=== PATIENT | male | born 1960 | race Caucasian/White ===

== ENCOUNTER 2017-10-22 16:31 | Emergency (ER) | payer OTHER ==
[2017-10-22 16:48] VITALS: BP 118/74; PULSE 92; TEMP 98.5; BMI 25.7
--- NOTE | 2017-10-22 16:57 | PDOC ---
Attending Attestation - Resident Resident Name: ChinmayHeidi - ED Attending Attestation I have performed the following: I have examined & evaluated the patient, The case was reviewed & discussed with the resident, I agree w/resident's findings & plan, Exceptions are as noted - HPI HPI: 10/22/17 18:01 Rash and fever for 2 days. Rash is generalized over the trunk and extremities, nonpruritic. Fever to 101.7 at home. Just finished a course of Bactrim for what was described as an infected tattoo. Prior to that, completed a course of amoxicillin subsequent to dental work. Denies any definite symptoms that would suggest infection including URI symptoms, sore throat, cough, chest pain, shortness of breath, abdominal pain, nausea, vomiting, diarrhea, visual or focal neurologic symptoms, unsteadiness of gait, urinary tract symptoms including dysuria frequency urgency hesitancy or hematuria 10/22/17 18:04 - Physicial Exam PE: 10/22/17 18:02 PE reveals that the patient is afebrile now and remainder of vital signs are normal PERRLA, fundi benign, conjunctivae, ENT clear Neck supple without bruit mass or nodes Chest clear with full breath sounds bilaterally and no wheezes rales or rhonchi CV regular without murmur rub or gallop pulses full and symmetric no JVD or edema no bruits Abdomen nondistended, bowel sounds active, soft without mass tenderness organomegaly. Neurological intact Skin with the diffuse maculopapular rash of the trunk and extremities. There is no sign of definite skin infection in the area of the tattoo, nor in other areas. - Medical Decision Making 10/22/17 18:05 Assessment: Rash and fever are most likely a drug reaction to the Bactrim. Although he has no mucous membrane signs or symptoms that would suggest a full blown [place] picture. He has no other symptoms or physical findings suggestive of infection in other areas of the body. Although with the recent dental procedure endocarditis must be considered Plan: Fever workup, symptomatic control, and further medical evaluation treatment depending on results. The patient has completed a course of Bactrim as of yesterday some of this since the inciting agent his condition should improve soon.
[2017-10-22 18:21] LABS: PH,URINE 5.5 (4.5-8); URINE APPEARANCE Clear; URINE BILIRUBIN Negative (NEGATIVE); URINE COLOR Yellow; URINE GLUCOSE (UA) Negative (NEGATIVE); URINE KETONE Trace (NEGATIVE); URINE LEUK ESTERASE Negative (NEGATIVE); URINE NITRITE Negative (NEGATIVE); URINE UROBILINOGEN 0.2 (0.2-1.0)
[2017-10-22 18:23] LABS: HEMATOCRIT 44.2 % (35.4-49); HEMOGLOBIN 14.4 GM/dl (11.7-16.9); MCH 30.1 pg (25.7-33.7); MCHC 32.6 g/dl (32.0-35.9); MEAN CELL VOLUME 92.4 fl (80-96); MEAN PLT VOLUME 9.8 fl (7.5-11.1); PLATELET COUNT 109 K/MM3 (134-434); RBC 4.78 M/mm3 (4.00-5.60); RDW 12.9 % (11.9-15.9); URINE PROTEIN 1+ (NEGATIVE); WHITE BLOOD COUNT 4.4 K/mm3 (4.0-10.8)
[2017-10-22 18:38] LABS: ALK PHOS 58 U/L (32-92); ANION GAP 7 MMOL/L (8-16); BILIRUBIN,TOTAL 0.8 mg/dl (0.2-1.0); BLOOD UREA NITROGEN 17 mg/dl (7-18); CALCIUM 8.4 mg/dl (8.4-10.2); CHLORIDE 104 mmol/L (98-107); CO2 23 mmol/L (22-28); CREATININE 1.6 mg/dl (0.6-1.3); GLUCOSE,RANDOM 108 mg/dl (74-106); POTASSIUM 3.8 mmol/L (3.5-5.1); SGOT/AST 32 U/L (10-42); SGPT/ALT 27 U/L (10-40); SODIUM 134 mmol/L (136-145); TOT PROT 6.7 g/dl (6.4-8.3); URIC ACID CRYSTALS FEW /hpf (NONE SEEN); URINE BACTERIA FEW /hpf (NEGATIVE); URINE RBC 0-2 /hpf (0-3)
--- NOTE | 2017-10-22 18:47 | PDOC ---
History of Present Illness - General Chief Complaint: SIRS, Suspected/Possible Stated Complaint: RASH/FEVER - History of Present Illness Initial Comments: Abhijit Olsen is a 56yo man with no significant medical history who presents with rash and fever today. He reports that he has been having some medical problems for the past two weeks. Initially, he had dental work 2 weeks ago and was prescribed a 7 day course of amoxicillin, which he completed without issues. Last week, he was seen for evaluation of skin infection around a new tatoo. He was prescribed bactrim, which he has been taking for hte past week. He reports that he has been feeling somewhat off for the past few days, with loss of appetite for several days and insomnia for two nights. He additionally reports shivering, sweating chills overnight yesterday. Mr Olsen reports that he is often sweaty at night, but this was much worse than usual. He did not feel well today at work, so he checked his temperature and it was 101.5. He took 1200mg of ibuprofen, an ambian, and nyquil at home this morning to get some sleep. This afternoon, his significant other noticed that he had a red rash over his entire body. They are not sure when it started as neither of them noticed prior to today. Mr Olsen denies that the rash itches or hurts. He has not had any new lotiions, soaps, or detergents, but he does not believe that he has ever had bactrim in the past. Prior to today, he does not believe that he has had a fever. He denies any associated symptoms including headache, congestion, sore throat, cough, nausea/ vomiting, or diarrhea. He does endorse some short, sharp, stabbing pains deep under the site of his skin infection, though these self-resolve after seconds and he assumed they were due to boxing recently. He has an occasional cough associated with smoking marijuana, but this is not new or changed. He has no other symtpoms. 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) COPD: No GI Disorders: Yes (DIVERTICULOSIS) Disorders: Yes (KIDNEY STONES) Psychiatric Problems: Yes (DEPRESSION ANXIETY) - Suicide/Smoking/Psychosocial Hx Smoking History: Former smoker Have you smoked in the past 12 months: Yes Number of Cigarettes Smoked Daily: 40 Information on smoking cessation initiated: No 'Breaking Loose' booklet given: 12/30/13 Hx Alcohol Use: Yes Substance Use Type: Alcohol, Marijuana, Opiates Review of Systems - Review of Systems Comments:: General: No fevers, no chills, no weight or appetite change, no malaise HEENT: No changes in vision, no changes in hearing, no congestion, no sore throat CV: No chest pain, no palpitations, no LE edema Pulm: No SOB, no cough, no wheezing GI: No nausea or vomiting, no change in bowel habits, no melena : No frequency, no urgency, no dysuria Musc: No back pain, no joint swelling, no recent injury Skin: See HPI Endo: No excessive thirst, no heat/cold intolerance Heme: No unusual bruising or bleeding, no swollen glands Neuro: No syncope, no numbness/tingling, no focal weakness Vasc: No claudication Psych: No recent change in mood, no SI or HI *Physical Exam - Vital Signs Last Vital Signs Temp Pulse Resp BP Pulse Ox 98.5 F 92 H 18 118/74 99 10/22/17 16:44 10/22/17 16:44 10/22/17 16:44 10/22/17 16:44 10/22/17 16:44 - Physical Exam Comments: General: Comfortable, no acute distress HEENT: PERRL, EOMI, MMM, voice normal, normal neck ROM, no LAD Cards: RRR, no murmur appreciated Pulm: Comfortable on room air, clear to auscultation bilaterally Abd: Soft, nontender, nondistended : No CVA tenderness Ext: Atraumatic. No LE edema. ROM intact. Strength 5/5 and equal bilaterally Skin: Diffuse red, maculopapular rash. Excoriations on BLE and LUE. No swelling , no skin sloughing, nontender, no drainage, no wounds. Vasc: Extremities WWP. Palpable radial and pedal pulses bilaterally Neuro: A&Ox3, CN grossly intact, normal speech, motor/sensory grossly intact and symmetric Psych: Mood appropriate to situation ED Treatment Course - LABORATORY CBC & Chemistry Diagram: 10/22/17 17:57 10/22/17 17:57 - ADDITIONAL ORDERS Additional order review: Laboratory Results 10/22/17 10/22/17 17:57 17:57 Sodium 134 L Potassium 3.8 Chloride 104 Carbon Dioxide 23 Anion Gap 7 L BUN 17 Creatinine 1.6 H Creat Clearance w eGFR 45.27 Random Glucose 108 H D Calcium 8.4 Total Bilirubin 0.8 AST 32 D ALT 27 D Alkaline Phosphatase 58 Total Protein 6.7 Albumin 4.0 Urine Color Yellow Urine Appearance Clear Urine pH 5.5 Ur Specific [place] 1.025 Urine Protein 1+ H Urine Glucose (UA) Negative Urine Ketones Trace Urine Blood Negative Urine Nitrite Negative Urine Bilirubin Negative Urine Urobilinogen 0.2 Ur Leukocyte Esterase Negative Urine RBC 0-2 Urine WBC 2-4 Uric Acid Crystals Few Urine Bacteria Few 10/22/17 17:57 RBC 4.78 MCV 92.4 MCHC 32.6 RDW 12.9 MPV 9.8 D Neutrophils % No Result Required. Lymphocytes % No Result Required. - RADIOLOGY Radiology Studies Ordered: Category Date Time Status CHEST X-RAY PORTABLE* [RAD] Stat Radiology 10/22/17 17:55 Ordered Medical Decision Making - Medical Decision Making Abhijit Olsen is an otherwise healthy 56yo man who presents today with full- body, nontender, non-pruritic erythematous rash and fever at home. - Rash appearance is most consistent with drug reaction as he recently started Bactrim for a skin infection - No fever in ED. However, Mr Olsen reports having taken 1200mg ibuprofen at home. Will work up for fever. No symptoms currently that suggest specific illness. CBC, BMP, UA, EKG, CXR ordered - No IVF at this time as Mr Olsen does not appear septic. May reconsider depending on results of labs - May need admission depending on results 10/22/17 19:21 - Labs unremarkable aside from mildly elevated Cr to 1.6. Previous labs from 4 years ago; likely secondary to mild dehydration from recent poor appetite - No sign of infection at this time based on labs, CXR, UA. CXR unconcerning - Discussed with patient. Appears to be reaction to Bactrim. Will give decadron and zantac. Plan to discharge. - Mr Olsen agrees with this plan. Discussed return precautions. He understands and agrees. Discussed with Dr Rodriguez. *DC/Admit/Observation/Transfer Diagnosis at time of Disposition: Drug exanthem - Discharge Dispostion Disposition: HOME Condition at time of disposition: Good Decision to Admit order: No - Referrals - Patient Instructions Printed Discharge Instructions: DI for Adverse Drug Reaction -- Allergic Additional Instructions: Discharge Instructions: - You were seen in the ED for fever and rash. These appear to be caused by a recent sulfa antibiotic, Bactrim, that you were taking at home. - You received a steroid medication and histamine josh to help with your symptoms - You should follow up with your primary physician in the next 2-3 days for re- evaluation - Seek medical care if you have continued fevers, worsening of your rash including swelling, peeling, drainage, or open wounds. You will also need to be seen if you are unable to eat and drink normally at home. - Come to the ED for immediate evaluation if you have any swelling in your throat, difficulty swallowing, or changes to your voice. - Post Discharge Activity
[2017-10-22] MEDS ORDERED: DEXAMETHASONE 4 MG TABLET (FP) PO ONE (19:11)
[2017-10-22] MEDS ORDERED: RANITIDINE HCL 150 MG TABLET (FP) PO ONE (19:11)
[2017-10-22] MEDS ORDERED: RANITIDINE HCL 150 MG TABLET (FP) ONE (19:17)
[2017-10-22] MEDS ORDERED: DEXAMETHASONE 4 MG TABLET (FP) ONE (19:17)
[2017-10-22 21:27] LABS: PLATELET ESTIMATE ADEQUATE
--- NOTE | 2017-10-23 09:48 | EKG ---
Test Reason : Blood Pressure : / mmHG Vent. Rate : 082 BPM Atrial Rate : 082 BPM P-R Int : 154 ms QRS Dur : 094 ms QT Int : 366 ms P-R-T Axes : 025 -04 037 degrees QTc Int : 427 ms NORMAL SINUS RHYTHM LOW VOLTAGE QRS BORDERLINE ECG WHEN COMPARED WITH ECG OF 21-AUG-2001 16:05, QUESTIONABLE CHANGE IN QRS AXIS NONSPECIFIC T WAVE ABNORMALITY NOW EVIDENT IN ANTERIOR LEADS Confirmed by Bernardo Foley MD ([id number]) on 10/23/2017 9:48:17 AM Referred By: Confirmed By:Bernardo Foley MD
== END 2017-10-22 19:29 | disposition home or self-care (01) ==
LOC: FER 16:31
DX: L27.0 Generalized skin eruption due to drugs and medicaments taken internally (principal); Z87.891 Personal history of nicotine dependence; F41.8 Other specified anxiety disorders; Z86.73 Personal history of transient ischemic attack (TIA), and cerebral infarction without residual deficits
CPT/HCPCS: 36415; 71045-TC-FY; 80053; 81003; 81015; 83605; 84484; 85025; 87086; 93005; 99283-25

== ENCOUNTER 2020-03-31 02:38 | Emergency (ER) | payer OTHER ==
[2020-03-31] MEDS ORDERED: KETOROLAC TROMETHAMINE 15 MG/ML VIAL IVPUSH ONE (02:43)
[2020-03-31 02:51] VITALS: PULSE 93; TEMP 97.7; BMI 30.1
[2020-03-31] MEDS ORDERED: ACETAMINOPHEN 325 MG TABLET (FP) PO ONE (02:53)
[2020-03-31] MEDS ORDERED: ACETAMINOPHEN 325 MG TABLET (FP) ONE (02:54)
[2020-03-31] MEDS ORDERED: SODIUM CHLORIDE 1,000 ML IV STA ×2 (02:57→03:22)
[2020-03-31] MEDS ORDERED: morphine SULFATE 4 MG/ML VIAL IVPB ONE (03:18)
[2020-03-31] MEDS ORDERED: morphine SULFATE 4 MG/ML VIAL ONE (03:19)
[2020-03-31 03:24] LABS: BASO % 1.1 % (0-2.0); EOS % 2.5 % (0-4.5); HEMOGLOBIN 14.8 GM/dL (11.7-16.9); LYMPH % 34.4 % (8-40); MCHC 33.7 g/dl (32.0-35.9); MEAN CELL VOLUME 92.1 fl (80-96); MONO % 9.2 % (3.8-10.2); NEUT % 52.8 % (42.8-82.8); PLATELET COUNT 196 K/MM3 (134-434); RBC 4.77 M/mm3 (4.00-5.60); WHITE BLOOD COUNT 10.5 K/mm3 (4.0-10.0)
[2020-03-31 03:27] LABS: EPI CELLS 1 /uL (0-25.1); HYALINE CASTS 1 /uL (0-3.1); URINE APPEARANCE CLEAR; URINE BACTERIA 10 /uL (0-1359); URINE BILIRUBIN NEGATIVE (NEGATIVE); URINE COLOR YELLOW; URINE GLUCOSE (UA) NEGATIVE (NEGATIVE); URINE KETONE NEGATIVE (NEGATIVE); URINE LEUK ESTERASE NEGATIVE (NEGATIVE); URINE NITRITE NEGATIVE (NEGATIVE); URINE PROTEIN NEGATIVE (NEGATIVE); URINE RBC 4 /uL (0-23.9); URINE UROBILINOGEN 0.2 mg/dL (0.2-1.0); URINE WBC 3 /uL (0-25.8)
[2020-03-31 03:43] LABS: POTASSIUM 4.1 mmol/L (3.5-5.1)
[2020-03-31 03:45] LABS: ALBUMIN 3.8 g/dl (3.4-5.0); BLOOD UREA NITROGEN 20.7 mg/dL (7-18)
[2020-03-31 03:48] LABS: CREATININE 1.2 mg/dL (0.55-1.3)
[2020-03-31 03:51] LABS: BILIRUBIN,TOTAL 0.3 mg/dL (0.2-1); TOT PROT 7.3 g/dl (6.4-8.2)
[2020-03-31 04:16] VITALS: BP 178/112
== END 2020-03-31 04:25 | disposition home or self-care (01) ==
LOC: FER 02:38
PROC: 3E0333Z Introduction of Anti-inflammatory into Peripheral Vein, Percutaneous Approach (ICD-10-PCS; principal; 2020-03-31)
PROC: 3E033NZ Introduction of Analgesics, Hypnotics, Sedatives into Peripheral Vein, Percutaneous Approach (ICD-10-PCS; 2020-03-31)
PROC: 3E0337Z Introduction of Electrolytic and Water Balance Substance into Peripheral Vein, Percutaneous Approach (ICD-10-PCS; 2020-03-31)
PROC: 3E0337Z Introduction of Electrolytic and Water Balance Substance into Peripheral Vein, Percutaneous Approach (ICD-10-PCS; 2020-03-31)
DX: N20.0 Calculus of kidney (principal)
CPT/HCPCS: 36415; 74176-TC; 80053; 81003; 85025; 87086; 99284-25

== ENCOUNTER 2022-02-28 10:44 | Emergency (ER) | payer BC, OTHER ==
[2022-02-28 10:50] VITALS: TEMP 98.1; BMI 31.5
[2022-02-28] MEDS ORDERED: LACTATED RINGERS SOLUTION 1000 ML INFUS.BAG IV ONE (10:56)
[2022-02-28] MEDS ORDERED: ACETAMINOPHEN 1000 MG/100 ML BAG IVPB ONE (10:56)
[2022-02-28] MEDS ORDERED: ACETAMINOPHEN INJECTION 100 ML IVPB ONE (11:15)
[2022-02-28 11:24] LABS: HEMATOCRIT 46.2 % (35.4-49); MCH 31.9 pg (25.7-33.7); MCHC 34.6 g/dl (32.0-35.9); MEAN CELL VOLUME 92.2 fl (80-96); MEAN PLT VOLUME 8.7 fl (7.5-11.1); PLATELET COUNT 183.7 10^3/uL (134-434); RBC 5.01 10^6/uL (4.00-5.60); RDW 13.4 % (11.9-15.9)
[2022-02-28 11:34] LABS: INR 1.2 (0.83-1.09); PROTHROMBIN TIME (PATIENT) 13.8 SEC (9.7-13.0)
[2022-02-28 11:55] LABS: ALBUMIN 3.5 g/dl (3.4-5.0); BILIRUBIN,TOTAL 0.9 mg/dl (0.2-1); CALCIUM 8.6 mg/dl (8.5-10); MAGNESIUM 1.8 mg/dL (1.8-2.4); TOT PROT 6.8 g/dl (6.4-8.2)
[2022-02-28] MEDS ORDERED: POTASSIUM CHLORIDE TABS 20 MEQ TABLET.ER (FP) PO ONE ×2 (12:20→12:25)
[2022-02-28 12:33] LABS: PH,URINE 5.5 (4.5-8); URINE APPEARANCE HAZY; URINE BILIRUBIN 1+ (NEGATIVE); URINE COLOR YELLOW; URINE GLUCOSE (UA) NEGATIVE (NEGATIVE); URINE KETONE NEGATIVE (NEGATIVE); URINE PROTEIN 1+ (NEGATIVE)
[2022-02-28 12:34] LABS: URINE LEUK ESTERASE NEGATIVE (NEGATIVE); URINE NITRITE NEGATIVE (NEGATIVE); URINE UROBILINOGEN 0.2 (0.2-1.0)
[2022-02-28 12:36] LABS: EPI CELLS RARE /HPF; URINE BACTERIA RARE /hpf (NEGATIVE); URINE WBC 0-2 (NEGATIVE)
[2022-02-28] MEDS ORDERED: AMOX TR/POT CLAV 875MG/125MG TABLETS (FP) PO ONE (13:55)
[2022-02-28 14:12] VITALS: BP 138/97; PULSE 78; RESP 18
[2022-02-28 16:22] LABS: PLATELET ESTIMATE ADEQUATE
== END 2022-02-28 14:15 | disposition home or self-care (01) ==
LOC: FER 10:44
PROC: 3E0333Z Introduction of Anti-inflammatory into Peripheral Vein, Percutaneous Approach (ICD-10-PCS; principal; 2022-02-28)
DX: K52.9 Noninfective gastroenteritis and colitis, unspecified (principal)
CPT/HCPCS: 0241U-QW; 36415; 74177-TC; 80053; 81003; 83690; 83735; 85025; 85610; 85730; 86850; 86900; 86901; 87086; 99285-25; Q9967

== ENCOUNTER 2022-09-02 17:56 | Emergency (ER) | payer BC ==
[2022-09-02 18:10] VITALS: BP 153/95; PULSE 100; RESP 18; TEMP 98.2; BMI 31.5
[2022-09-02 19:21] LABS: EPITHELIAL CELLS FEW /hpf; URINE MUCUS 2+
[2022-09-02 19:28] LABS: HEMOGLOBIN 16.3 G/dL (11.7-16.9); MCH 31.8 pg (25.7-33.7); MCHC 33.9 g/dl (32.0-35.9); MEAN CELL VOLUME 93.9 fl (80-96); MEAN PLT VOLUME 9.7 fl (7.5-11.1); PLATELET COUNT 183.1 10^3/uL (134-434); RBC 5.11 10^6/uL (4.00-5.60); WHITE BLOOD COUNT 14.1 10^3/uL (4.0-10.8)
[2022-09-02 19:45] LABS: ALBUMIN 4.3 g/dl (3.4-5.0); BILIRUBIN,TOTAL 0.5 mg/dl (0.2-1); BLOOD UREA NITROGEN 13.3 mg/dl (7-18); CALCIUM 9.3 mg/dl (8.5-10.1); CREATININE 0.9 mg/dl (0.6-1.3); POTASSIUM 3.9 mmol/L (3.5-5.1); SGOT/AST 18.3 U/L (15-37); SGPT/ALT 31.6 U/L (7-52); TOT PROT 6.7 g/dl (6.4-8.2)
[2022-09-02] MEDS ORDERED: CIPROFLOXACIN 500 MG TABLET (RESTRICTED TO ID) PO ONE (21:25)
[2022-09-02] MEDS ORDERED: CIPROFLOXACIN 250 MG TABLET (RESTRICTED TO ID) PO ONE (21:28)
== END 2022-09-02 21:41 | disposition home or self-care (01) ==
LOC: FER 17:56 → SUPCPDRO 17:56 → FER 21:41
DX: R10.30 Lower abdominal pain, unspecified (principal)
CPT/HCPCS: 36415; 74176-TC; 80053; 81003; 81015; 85027; 87086; 99284-25